=== PATIENT | female | born 1995 | race Caucasian/White ===

== ENCOUNTER 2018-09-21 09:10 | Emergency (ER) | payer OTHER ==
[~2018-09-21] VITALS: Ht 165.1 cm; Wt 74.7 kg
--- NOTE | 2018-09-21 09:44 | NUR ---
FAMILY AT BEDSIDE. AMBULATED TO BATHROOM, STEADY GAIT
[2018-09-21] MEDS ORDERED: FAMOTIDINE 20 MG TABLET PO ONE (10:00)
[2018-09-21] MEDS ORDERED: MAALOX/HYOSCYAMINE/LIDOCAINE 45 ML BTL PO ONE (10:00)
[2018-09-21] MEDS ORDERED: ONDANSETRON 2MG/ML, 2ML IVPush ONE (10:00)
[2018-09-21] MEDS ORDERED: SODIUM CHLORIDE FLUSH 10ML SYR IVF ONE (10:00)
[2018-09-21] MEDS ORDERED: ONDANSETRON ODT 4 MG PO ONE (10:00)
[2018-09-21] MEDS ORDERED: FAMOTIDINE 20 MG/2 ML IVP ONE (10:00)
[2018-09-21] MEDS ORDERED: MAALOX/HYOSCYAMINE/LIDOCAINE 45 ML BTL ONE (10:04)
[2018-09-21] MEDS ORDERED: ONDANSETRON ODT 4 MG ONE (10:04)
[2018-09-21] MEDS ORDERED: FAMOTIDINE 20 MG TABLET ONE (10:04)
--- NOTE | 2018-09-21 10:17 | NUR ---
OFF FLOOR TO RADIOLOGY
[2018-09-21 10:19] LABS: MICROSCOPIC NOT IND
[2018-09-21 10:20] LABS: CULTURE INDICATED? NO
[2018-09-21 10:42] LABS: ALANINE AMINOTRANSFERASE 23 U/L (12-78); ALBUMIN 3.8 g/dL (3.4-5.0); ANION GAP 6 mmol/L (5-15); CALCIUM 8.5 mg/dL (8.5-10.1); CHLORIDE 111 mmol/L (98-107); CREATININE 0.69 mg/dL (0.55-1.02)
[2018-09-21 10:47] LABS: ALKALINE PHOSPHATASE 72 U/L (45-117); BASOPHILS # (AUTO) 0.02 x10^3/uL (0-0.3); BASOPHILS % (AUTO) 1 % (0-1); BILIRUBIN,TOTAL 0.3 mg/dL (0.2-1.0); EOSINOPHILS % (AUTO) 2 % (1-7); LYMPHOCYTES # (AUTO) 1.52 x10^3/uL (1-6.1); LYMPHOCYTES % (AUTO) 32 % (22-44); MD NO; MEAN CORPUSCULAR HGB CONC 32.2 g/dL (32.4-35.8); MEAN CORPUSCULAR VOLUME 90.2 fL (80-100); MEAN PLATELET VOLUME 7.7 fL (7.4-10.4); MONOCYTES # (AUTO) 0.45 x10^3/uL (0-1.4); MONOCYTES % (AUTO) 10 % (2-9); NEUTROPHILS # (AUTO) 2.64 x10^3/uL (1.8-8.0); NEUTROPHILS % (AUTO) 56 % (42-75); PLATELET COUNT 270 x10^3/uL (130-400); RED BLOOD COUNT 4.31 x10^6/uL (3.82-5.3); TOTAL PROTEIN 7.1 g/dL (6.4-8.2)
--- NOTE | 2018-09-21 10:54 | NUR ---
MEDICATED PER ORDERS. AWAITING TEST RESULTS
[2018-09-21 11:40] VITALS: BP 108/64
--- NOTE | 2018-09-21 11:40 | NUR ---
PAIN IMPROVED SINCE MEDICATED FOR SAME. DISCHARGE PAPERS GIVEN AND PT AMBULATED TO DISCHARGE DESK, STEADY GAIT
== END 2018-09-21 11:43 | disposition home or self-care (01) ==
LOC: ED 11:37
DX: K29.00 Acute gastritis without bleeding (principal)
CPT/HCPCS: 36415; 71046; 76700; 80053; 81003; 83690; 84703; 85025; 93005; 99284; Q0162